=== PATIENT | female | born 1955 | race Caucasian/White ===

== ENCOUNTER 2017-08-08 01:27 | Observation (INO) | payer MEDICARE, OTHER ==
[2017-08-08] VITALS (12 sets, daily range): BP systolic 99–126; BP diastolic 43–85; PULSE 61–84; TEMP 97.3–101.2
[~2017-08-08] VITALS: Ht 172.7 cm; Wt 129.5 kg
[~2017-08-08 01:27] MED LIST: PROVENTIL0.09 MG/A1 IH; SYMBICORT1 AE2 IH; SYNTHROID0.1 MG PO
[2017-08-08] MEDS ORDERED: PRINZIDE 25 MG-1 TAB PO (01:38)
[2017-08-08] MEDS ORDERED: LIPITOR20 MG PO (01:38)
[2017-08-08 02:23] LABS: BASO # 0.1 (0.0-0.2); BASO % 0.4 % (0.0-2.0); EOS % 0.1 % (0-4.0); GRAN % 84.9 % (42.2-75.2); HEMATOCRIT 42.4 % (37.0-47.0); HEMOGLOBIN 13.8 g/dl (12.5-16.0); LYMPH # 1.1 (1.2-3.4); LYMPH % 9.6 % (20.0-51.0); MEAN CELL VOLUME 93 fl (80.0-100.0); MEAN CORPUSCULAR HEMOGLOBIN 30 pg (27.0-31.0); MEAN CORPUSCULAR HGB CONC 33 g/dl (33.0-37.0); MONO # 0.6 (0.1-0.6); MONO % 4.7 % (1.7-9.3); PLATELET COUNT 204 K/mm3 (130-400); RED BLOOD COUNT 4.58 M/mm3 (4.10-5.30); REDCELL DISTRIBUTION WIDTH-CV 13.4 % (11.5-14.5)
[2017-08-08 02:35] LABS: ALBUMIN 4.3 gm/dL (3.5-5.0); C-REACTIVE PROTEIN 2.6 mg/dL (0.0-0.9); CALCIUM 9.3 mg/dL (8.4-10.2); CREATININE, serum 0.77 mg/dL (0.52-1.25); POTASSIUM 3.8 mmol/L (3.4-5.0); TOTAL PROTEIN 7.2 gm/dL (6.4-8.2)
[2017-08-08] MEDS ORDERED: GLUCOSAMINE 1000 (04:08)
[2017-08-08] MEDS ORDERED: ASPIRIN 81M81 MG/TA2 PO (04:09)
[2017-08-08] MEDS ORDERED: BIOTIN 0.3 MG-21 TAB (04:10)
[2017-08-08] MEDS ORDERED: VITAMIN D 1001000 IU (04:10)
[2017-08-08] MEDS ORDERED: MAGNESIUM CHELA27 MG (04:11)
[2017-08-09 02:00] VITALS: BP 106/48; PULSE 63; TEMP 96.2
[2017-08-09 06:30] LABS: MEAN CELL VOLUME 93 fl (80.0-100.0); MEAN CORPUSCULAR HGB CONC 33 g/dl (33.0-37.0); MEAN PLATELET VOLUME 10.3 fl (7.4-10.4); PLATELET COUNT 159 K/mm3 (130-400); RED BLOOD COUNT 3.77 M/mm3 (4.10-5.30); REDCELL DISTRIBUTION WIDTH-CV 13.4 % (11.5-14.5)
[2017-08-09 06:49] LABS: CALCIUM 8.2 mg/dL (8.4-10.2); CREATININE, serum 0.95 mg/dL (0.52-1.25); POTASSIUM 3.7 mmol/L (3.4-5.0)
[2017-08-09 06:51] LABS: HEMATOCRIT 35.1 % (37.0-47.0); HEMOGLOBIN 11.4 g/dl (12.5-16.0); MEAN CORPUSCULAR HEMOGLOBIN 30 pg (27.0-31.0)
[2017-08-09 07:46] LABS: BAND 22 % (0-10); HYPOCHROMIA 1+; LYMPHOCYTE 4 % (20.0-51.0); NEUTROPHILS 70 % (42.0-75.2); PLATELET ESTIMATE NORMAL (NORMAL)
[2017-08-09 09:10] VITALS: BP 111/49; PULSE 64; TEMP 98.2
[2017-08-09 14:20] VITALS: BP 114/59; PULSE 57; TEMP 97.8
[2017-08-09 17:27] VITALS: BP 111/52; PULSE 62; TEMP 99
[2017-08-09 21:25] VITALS: BP 116/51; PULSE 66; TEMP 98.2
[2017-08-10 05:05] VITALS: BP 113/57; PULSE 63; TEMP 98.5
[2017-08-10 06:59] LABS: BASO % 0.3 % (0.0-2.0); EOS % 0.2 % (0-4.0); GRAN # 8.2 (1.4-6.5); GRAN % 78.5 % (42.2-75.2); LYMPH # 1.6 (1.2-3.4); LYMPH % 15.5 % (20.0-51.0); MEAN CELL VOLUME 94 fl (80.0-100.0); MEAN CORPUSCULAR HGB CONC 32 g/dl (33.0-37.0); MEAN PLATELET VOLUME 10.6 fl (7.4-10.4); MONO # 0.5 (0.1-0.6); MONO % 4.6 % (1.7-9.3); PLATELET COUNT 163 K/mm3 (130-400); RED BLOOD COUNT 3.47 M/mm3 (4.10-5.30); REDCELL DISTRIBUTION WIDTH-CV 13.5 % (11.5-14.5)
[2017-08-10 07:23] LABS: HEMATOCRIT 32.6 % (37.0-47.0); HEMOGLOBIN 10.5 g/dl (12.5-16.0); MEAN CORPUSCULAR HEMOGLOBIN 30 pg (27.0-31.0)
[2017-08-10 10:04] VITALS: BP 130/86; PULSE 74; TEMP 98.2
[2017-08-10 14:10] VITALS: BP 138/73; PULSE 77; TEMP 98
[2017-08-10 17:23] VITALS: BP 113/64; PULSE 73; TEMP 98.6
== END 2017-08-10 19:10 | disposition home or self-care (01) ==
LOC: COL.ER 01:27 → SURG 03:05
PROVIDERS: Emergency Medicine; Surgery
DX: K35.80 Unspecified acute appendicitis (principal); I10 Essential (primary) hypertension; E03.9 Hypothyroidism, unspecified; E78.00 Pure hypercholesterolemia, unspecified; J45.909 Unspecified asthma, uncomplicated; Z79.82 Long term (current) use of aspirin; G47.33 Obstructive sleep apnea (adult) (pediatric); E66.01 Morbid (severe) obesity due to excess calories
CPT/HCPCS: A9284; G0378; J1100; J1650; J1885; J2270; J2405; J2543; J2704; J2710; J2765; J7030; J7042; J7050; J7120; Q9967

== ENCOUNTER → 2020-02-27 | Outpatient (CLI) | payer MEDICARE, OTHER ==
[~2020-02-27] MED LIST changes: +ASPIRIN 81M81 MG/TA2 PO; +BIOTIN 0.3 MG-21 TAB; +GLUCOSAMINE 1000; +LIPITOR20 MG PO; +MAGNESIUM CHELA27 MG; +PRINZIDE 25 MG-1 TAB PO; +VITAMIN D 1001000 IU
== END ==
LOC: COL.RAD
DX: M25.571 Pain in right ankle and joints of right foot (principal); M25.572 Pain in left ankle and joints of left foot
CPT/HCPCS: J3301; Q9967

== ENCOUNTER → 2021-06-17 | Outpatient (CLI) | payer MEDICARE, OTHER | LOC: COL.RAD 05-21 08:30 | DX: M19.071 Primary osteoarthritis, right ankle and foot (principal); M19.072 Primary osteoarthritis, left ankle and foot | CPT/HCPCS: J3301; Q9967 ==

== ENCOUNTER → 2022-09-06 | Outpatient (CLI) | payer MEDICARE | LOC: COL.RAD 08:11 | DX: M19.072 Primary osteoarthritis, left ankle and foot (principal); M19.071 Primary osteoarthritis, right ankle and foot | CPT/HCPCS: J3301; Q9967 ==

== ENCOUNTER → 2023-10-16 | Outpatient (CLI) | payer MEDICARE ==
[~2023-10-16] MED LIST changes: +Iohexol 300 - 10 ML VIAL IV ONE; +Triamcinolone 40 MG/ML 1 ML VIAL IJ ONE
== END ==
LOC: COL.RAD 07:26
DX: M19.071 Primary osteoarthritis, right ankle and foot (principal); M19.072 Primary osteoarthritis, left ankle and foot
CPT/HCPCS: J0665; J3301; Q9967